=== PATIENT | female | born 1995 | race Hispanic/Latino ===

== ENCOUNTER 2018-09-07 22:01 | Observation (INO) | payer OTHER ==
[2018-09-07] MEDS ORDERED: LACTATED RINGERS 1000ML 1,000 ML IV SCH (22:30)
[2018-09-07 22:45] LABS: BILIRUBIN,URINE Negative (NEGATIVE); COLOR,URINE Yellow (YELLOW); GLUCOSE, URINE (UA) Negative (NEGATIVE); KETONES,URINE Negative (NEGATIVE); LEUKOCYTE ESTERASE ,URINE Large (NEGATIVE); NITRATE,URINE Negative (NEGATIVE); OCCULT BLOOD,URINE Negative (NEGATIVE); PH,URINE 6.5 (5.0-8.0); PROTEIN,URINE Trace (NEGATIVE)
[2018-09-07 22:46] LABS: APPEARANCE,URINE CLOUDY (CLEAR)
[2018-09-07 22:51] LABS: AMPHET/METH SCREEN,URINE NEGATIVE (NEGATIVE); BARBITURATE SCREEN, URINE NEGATIVE (NEGATIVE); BENZODIAZEPINES SCREEN,URINE NEGATIVE (NEGATIVE); CANNABINOID SCREEN,URINE NEGATIVE (NEGATIVE); COCAINE SCREEN,URINE NEGATIVE (NEGATIVE); OPIATE SCREEN,URINE NEGATIVE (NEGATIVE); PHENCYCLIDINE SCREEN,URINE NEGATIVE (NEGATIVE)
[2018-09-07 22:59] LABS: BACTERIA,URINE Many /HPF (None Seen); WBC,URINE 26-50 /HPF (0-1)
== END 2018-09-08 00:05 | disposition home or self-care (01) ==
LOC: EDH 22:01 → LDH 22:02
DX: O26.893 Other specified pregnancy related conditions, third trimester (principal); R10.2 Pelvic and perineal pain; R10.30 Lower abdominal pain, unspecified; M54.9 Dorsalgia, unspecified; Z3A.38 38 weeks gestation of pregnancy; Z79.899 Other long term (current) drug therapy
CPT/HCPCS: 80305; 81001; 99284; G0378 ×2

== ENCOUNTER 2018-09-22 18:35 | Inpatient (IN) | payer OTHER ==
[~2018-09-22] VITALS: Ht 152.4 cm; Wt 97.5 kg
[2018-09-22 19:38] LABS: APPEARANCE,URINE Turbid (CLEAR); BILIRUBIN,URINE Negative (NEGATIVE); COLOR,URINE Yellow (YELLOW); GLUCOSE, URINE (UA) Negative (NEGATIVE); KETONES,URINE Trace mg/dL (NEGATIVE); LEUKOCYTE ESTERASE ,URINE Large (NEGATIVE); NITRATE,URINE Negative (NEGATIVE); OCCULT BLOOD,URINE Nonhemolyzed Trace (NEGATIVE); PH,URINE 6.5 (5.0-8.0); PROTEIN,URINE POS 1+ (NEGATIVE)
[2018-09-22 19:43] LABS: AMPHET/METH SCREEN,URINE NEGATIVE (NEGATIVE); BARBITURATE SCREEN, URINE NEGATIVE (NEGATIVE); BENZODIAZEPINES SCREEN,URINE NEGATIVE (NEGATIVE); CANNABINOID SCREEN,URINE NEGATIVE (NEGATIVE); COCAINE SCREEN,URINE NEGATIVE (NEGATIVE); OPIATE SCREEN,URINE NEGATIVE (NEGATIVE); PHENCYCLIDINE SCREEN,URINE NEGATIVE (NEGATIVE)
[2018-09-22 20:11] VITALS: BP 159/80
[2018-09-22 20:19] LABS: BACTERIA,URINE Moderate /HPF (None Seen); RBC,URINE 0-1 /HPF (0-1)
[2018-09-22] MEDS ORDERED: LACTATED RINGERS 1000ML 1,000 ML IV PRN (21:02)
[2018-09-22] MEDS ORDERED: PREN1TAB80 PO (21:55)
[2018-09-22] MEDS ORDERED: VITA-328 PO (21:55)
[2018-09-22] MEDS ORDERED: FOLI0.8T PO (21:55)
[2018-09-23] MEDS ORDERED: AMPICILLIN 2GM+NS 100ML 100 ML IV SCH (10:30)
[2018-09-23] MEDS ORDERED: AMPICILLIN 1GM+NS 50ML 50 ML IV SCH (10:30)
[2018-09-23] MEDS ORDERED: OXYTOCIN-LR 20 UNITS/1000 ML 1,000 ML IV SCH ×2 (10:30)
[2018-09-23] MEDS ORDERED: OXYTOCIN 10 USP UNITS/ML 20 UNIT in LACTATED RINGERS 1000ML 1,000 ML IV SCH (10:30)
[2018-09-23 10:57] LABS: HEMATOCRIT 36.2 % (36-48); NUCLEATED RED BLOOD CELLS 0.1 % (0.0-0.19); PLATELET COUNT (AUTO) 164 K/uL (130-400); RED BLOOD CELL COUNT(AUTO) 4.12 MIL/uL (4.00-5.50); RED CELL DISTRIBUTION WIDTH 14.4 % (11.0-15.5); WHITE BLOOD COUNT (AUTO) 7.8 K/uL (4.8-10.8)
[2018-09-23] MEDS: LACTATED RINGERS 1000ML 1,000 ML IV PRN (14:45)
[2018-09-23] MEDS ORDERED: EPHEDRINE SULFATE 50 MG/ML AMPULE IVP PRN (15:00)
[2018-09-23] MEDS ORDERED: NALOXONE HCL 0.4 MG/1 ML ML IV PRN (15:00)
[2018-09-23] MEDS ORDERED: LACTATED RINGERS 500 ML 500 ML IV PRN (15:00)
[2018-09-23] MEDS ORDERED: CEFAZOLIN SODIUM 1 GM VIAL IVP PRN (18:15)
[2018-09-23] MEDS ORDERED: LACTATED RINGERS 1000ML 1,000 ML IV SCH (18:15)
[2018-09-23] MEDS ORDERED: DURAMORPH PF1 MG/ML 10ML AMP IV ONE (18:21)
[2018-09-23] MEDS ORDERED: OXYTOCIN 10 USP UNITS/ML ONE (18:21)
[2018-09-23] MEDS ORDERED: ROPIVACAINE 0.5% 5MG/ML 30ML IJ ONE (18:23)
[2018-09-23] MEDS ORDERED: FENTANYL CITRATE PF 50 MCG/1 ML 2ML VIAL ONE (18:27)
[2018-09-23] MEDS ORDERED: CEFAZOLIN SODIUM 1 GM VIAL IVP ONE (18:40)
[2018-09-23] MEDS ORDERED: EPHEDRINE SULFATE 50 MG/ML AMPULE ONE (19:01)
[2018-09-23] MEDS ORDERED: ONDANSETRON HCL 4 MG/2 ML VIAL ONE (19:02)
[2018-09-23] MEDS ORDERED: SODIUM CHLORIDE 0.9% 10 ML VIAL IVP PRN (19:15)
[2018-09-23] MEDS ORDERED: OXYTOCIN-LR 20 UNITS/1000 ML 1,000 ML IV PRN (19:15)
[2018-09-23] MEDS ORDERED: PROMETHAZINE HCL 25 MG/ML 1ML AMPULE IM PRN (19:15)
[2018-09-23] MEDS ORDERED: MEPERIDINE-PF 75 MG/ML SYG IM PRN (19:15)
[2018-09-23] MEDS ORDERED: DEXTROSE 5 %-0.45 % NACL 1,000 ML IV PRN (19:15)
[2018-09-23 21:00] VITALS: BP 136/77
[2018-09-23 22:00] VITALS: BP 120/65
[2018-09-23] MEDS ORDERED: HYDROCODONE/ACETAMINOPHEN 5/325 MG TAB PO PRN ×2 (23:00)
[2018-09-23] MEDS ORDERED: ONDANSETRON HCL MDV 20ML 2 MG/ML VIAL IVP PRN ×2 (23:00)
[2018-09-23] MEDS ORDERED: DiphenhydrAMINE HCL 50 MG/ML VIAL IV PRN (23:00)
[2018-09-23 23:37] VITALS: BP 133/66
[2018-09-24 03:44] VITALS: BP 107/69
[2018-09-24] MEDS: LACTATED RINGERS 1000ML 1,000 ML IV PRN (05:33)
[2018-09-24 06:49] LABS: HEMATOCRIT 26.2 % (36-48); MEAN CORPUSCULAR HEMOGLOBIN 30.2 pg (27.0-33.0); MEAN CORPUSCULAR HGB CONC 33.9 g/dL (32.0-36.0); MEAN CORPUSCULAR VOLUME 88.9 fL (79-99); PLATELET COUNT (AUTO) 153 K/uL (130-400); RED BLOOD CELL COUNT(AUTO) 2.94 MIL/uL (4.00-5.50); RED CELL DISTRIBUTION WIDTH 14.2 % (11.0-15.5); WHITE BLOOD COUNT (AUTO) 10.6 K/uL (4.8-10.8)
[2018-09-24 07:27] VITALS: BP 125/68
[2018-09-24] MEDS ORDERED: ACETAMINOPHEN EXTRA STRENGTH 500 MG TABLET PO PRN (08:30)
[2018-09-24] MEDS ORDERED: MEASLES/MUMPS/RUBELLA VACCINE, LIVE 0.5 ML/VIAL SQ SCH (08:30)
[2018-09-24] MEDS ORDERED: ACETAMINOPHEN-CODEINE 300/30MG TAB PO PRN (08:30)
[2018-09-24] MEDS ORDERED: BISACODYL 10 MG SUPP.RECT RC PRN (08:30)
[2018-09-24] MEDS: DOCUSATE SODIUM 100 MG CAP PO SCH ×2 (08:50→20:36)
[2018-09-24] MEDS: SIMETHICONE 80 MG TAB.CHEW PO PRN ×3 (08:51→20:37)
[2018-09-24] MEDS: IBUPROFEN 800 MG TAB PO SCH ×2 (08:53→18:01)
[2018-09-24 11:08] LABS: HEPATITIS Bs ANTIGEN SCREEN P Negative (Negative)
[2018-09-24 11:20] VITALS: BP 138/82
[2018-09-24 15:38] VITALS: BP 129/72
--- NOTE | 2018-09-24 19:10 | NUR ---
PT. AMBULATED IN HALLWAY, WELL TOLERATED.
[2018-09-24 19:30] VITALS: BP 123/59
--- NOTE | 2018-09-24 23:00 | NUR ---
PT. AMBULATING IN ROOM, DENIED PAIN AND DISCOMFORT.
[2018-09-24 23:44] VITALS: BP 106/63
[2018-09-25] MEDS: IBUPROFEN 800 MG TAB PO SCH ×3 (02:18→15:47)
[2018-09-25 03:40] VITALS: BP 120/66
[2018-09-25 07:48] VITALS: BP 128/76
[2018-09-25] MEDS: DOCUSATE SODIUM 100 MG CAP PO SCH (09:48)
[2018-09-25] MEDS: SIMETHICONE 80 MG TAB.CHEW PO PRN ×2 (09:48→15:46)
[2018-09-25 11:24] VITALS: BP 136/84
[2018-09-25 15:57] VITALS: BP 113/58
--- NOTE | 2018-09-25 19:05 | NUR ---
DISCHARGE PT LEFT UNIT AMBULATING, ACCOMPANIED BY SIGNIFICANT OTHER. DENIED PAIN AND HAD NO COMPLAINTS. BABY STAYED IN NURSERY FOR CONTINUITY OF CARE. TRANSPORTED BY PERSONAL VEHICLE.
== END 2018-09-25 19:05 | disposition home or self-care (01) | DRG 788 ==
LOC: EDH 18:35 → OBSVTOIN 18:57 → LDH 18:57 → WSH 09-23 21:00
PROVIDERS: ADMIT Specialist; ATTEND Specialist
PROC: 10D00Z1 Extraction of Products of Conception, Low, Open Approach (ICD-10-PCS; principal; 2018-09-23 18:20)
DX: O69.1XX0 Labor and delivery complicated by cord around neck, with compression, not applicable or unspecified (principal); Z37.0 Single live birth; Z3A.40 40 weeks gestation of pregnancy; Z28.21 Immunization not carried out because of patient refusal
CPT/HCPCS: 36415; 59510; 76819; 80305; 81001; 85027; 86592; 86701; 86850; 86900; 86901; 87340; 87390; A4314; A4344; A4606; G0378; J0290; J0690; J2274; J2405; J2590; J2795; J3010; J3490; J7120